=== PATIENT | male | born 1960 | race Caucasian/White ===

== ENCOUNTER 2022-05-13 06:21 | Emergency (ER) | payer MEDICARE, OTHER ==
[~2022-05-13] VITALS: Ht 182.8 cm; Wt 79.5 kg
--- NOTE | 2022-05-13 07:11 | ED Abdominal Pain ---
General Chief Complaint: Abdominal/GI Problems Stated Complaint: UNABLE TO HAVE BOWEL MOVEMENT Source of Information: Patient Exam Limitations: No Limitations (MUSHTAQ CARTER DO) History of Present Illness Date Seen by Provider: May 13, 2022 Time Seen by Provider: 06:50 Initial Comments Patient is a 61-year-old male with history of chronic back pain requiring twice daily long-acting morphine who presents with constipation. Patient states he has diffuse episodic left lower abdominal pain associated with pressure and urge to defecate with inability to have a full bowel movement for the past 5 days. Patient has been treating himself with Dulcolax and a fleets enema without relief. Patient last took a fleets enema prior to ED arrival. States that in previous occasion he is required fecal disimpaction. He denies nausea vomiting, urinary frequency urgency or hematuria. He reports some worsening of chronic back pain. No other appearance of acute symptoms or complaints. Patient is accompanied at bedside by his spouse. Timing/Duration: 4-5 Days Severity/Quality: Other Location: Other Radiation: Other Activities at Onset: Other Modifying Factors: Improves With Other Associated Symptoms: Other (MUSHTAQ CARTER DO) Allergies and Home Medications Allergies Coded Allergies: NSAIDS (Non-Steroidal Anti-Inflamma (Verified Allergy, Unknown, 05/13/22) Patient Home Medication List Home Medication List Reviewed: Yes (MUSHTAQ CARTER DO) Home Medication List Reviewed: Yes (LINDA CRESPO MD) Review of Systems Review of Systems Constitutional: see HPI EENTM: See HPI Respiratory: See HPI Cardiovascular: See HPI Gastrointestinal: See HPI Genitourinary: See HPI Musculoskeletal: see HPI Skin: see HPI Psychiatric/Neurological: See HPI Endocrine: See HPI Hematologic/Lymphatic: See HPI (MUSHTAQ CARTER DO) Past Znmfove-Zcadbb-Mhfjdf Hx Patient Social History Tobacco Use?: No (MUSHTAQ CARTER DO) Physical Exam Vital Signs Vital Signs - First Documented 05/13/22 05/13/22 06:30 08:21 Temp 36.6 Pulse 86 Resp 18 B/P (MAP) 164/90 (114) Pulse Ox 99 O2 Delivery Room Air (LINDA CRESPO MD) Vital Signs Capillary Refill : (MUSHTAQ CARTER DO) Height/Weight/BMI Height: '" Weight: lbs. oz. kg; BMI Method: General Appearance: WD/WN, no apparent distress HEENT: normal ENT inspection Respiratory: lungs clear Cardiovascular: regular rate, rhythm Gastrointestinal: soft Extremities: normal range of motion, non-tender Back: normal inspection Neurologic/Psychiatric: alert, oriented x 3 (MUSHTAQ CARTER DO) Focused Exam Sepsis Stage: Ruled Out (MSUHTAQ CARTER DO) Progress/Results/Core Measures Results/Orders Vital Signs/I&O 05/13/22 05/13/22 06:30 08:21 Temp 36.6 36.6 Pulse 86 84 Resp 18 18 B/P (MAP) 164/90 (114) 152/84 Pulse Ox 99 O2 Delivery Room Air Room Air (LINDA CRESPO MD) Progress Progress Note #1: Progress Note I assumed care of patient from Dr. Carter at shift change. Patient had acute abdomen xray series done that shows increased stool throughout colon but no definite sign of a fecal impaction. Will offer to perform digital rectal exam of patient to see if there is any stool that can be reached for digital disimpaction. Progress Note #2: Progress Note The acute abdomen x-ray series did show some increased stool present throughout the colon but there was no rectal impaction. Reviewed results with the patient and family. He has had some results here in the emergency department after he had used Dulcolax and fleets enema from home. Counseled that I could perform a digital rectal exam to see if there was any stool I could reach however it did n ot look like it on the x-ray. Patient deferred on this and I did mention that she could also use MiraLAX and Dulcolax to try to get his bowels to move from above as well as continued the fleets enemas if needed. Consider speaking with his pain management provider about medications for opioid-induced constipation such as Linzess or other medications. Patient was agreeable to this plan and will continue to try things at home. He was just concerned that he may have a complete bowel blockage or need disimpaction as he had years ago after surgery. (LINDA CRESPO MD) Diagnostic Imaging Diagonstic Imaging: Xray Plain Films/CT/US/NM/MRI: abdomen Comments NAME: INEZ HENRY [facility] REC#: [id number] PT STATUS: REG ER : 1960 PHYSICIAN: MUSHTAQ CARTER DO ADMIT DATE: 05/13/22/ER FS Draft Date of Exam:05/13/22 ACUTE ABD SERIES CLINICAL INDICATION: Patient with no BM for 5-6 days. Patient has history of pain medication use. EXAMS: X-ray of the chest PA view and x-ray of the abdomen supine and upright views. COMPARISONS: None. FINDINGS: LUNGS/ PLEURA: Lungs are clear. There is no pneumothorax. There is no pleural effusion. MEDIASTINUM: Unremarkable. PULMONARY VASCULATURE: Unremarkable. HEART: Unremarkable. BONES/ EXTRATHORACIC SOFT TISSUE: There are degenerative spurs involving the thoracic spine. ABDOMEN AND PELVIS: There are nondilated multiple air loops with air-fluid levels involving the small bowel and colon. This is most seen in the mid abdomen, right colon region and pelvis. There is formed stool in the left colon region. There are sutures in the pelvis noted. Phleboliths are noted in the pelvis. There is no evidence of abdominal free air. Surgical clips are seen overlying the right upper quadrant which could be related to cholecystectomy changes. There are no focal calcifications overlying the expected regions/ pathways of both kidneys, ureters, and bladder regions. IMPRESSION: 1: There is no radiographic evidence of acute cardiopulmonary process. 2: Nonspecific bowel gas pattern with nondilated multiple loops of air-fluid levels involving small bowel and colon. These findings may represent infectious or inflammatory enteritis. Ileus is less likely. Dictated on workstation # [id number] Dict: 05/13/22 0725 Trans: 05/13/22 0743 [facility] [id number] Interpreted by: NOAH CISNEROS MD Electronically signed by: Reviewed: Reviewed by Nh (LINDA CRESPO MD) Departure Communication (Admissions) Acute abdominal series: Work-up in progress. Care to be transitioned to oncoming ERP at 07:00 (MUSHTAQ CARTER DO) Impression Primary Impression: Constipation due to opioid therapy Additional Impression: Intermittent left lower quadrant abdominal pain Disposition: 01 HOME, SELF-CARE Condition: Stable Departure-Patient Inst. Decision time for Depature: 08:23 (LINDA CRESPO MD) Referrals: NO,LOCAL PHYSICIAN (PCP/Family) Primary Care Physician Patient Instructions: Constipation, Adult ED, Dealing with Constipation from the Drugs You Take Add. Discharge Instructions: Continue to drink plenty of fluids and stay well-hydrated. Consider adding an MiraLAX to your constipation regimen. You can mix 1 capful or 17 g and 8 ounces of liquid and drink without at least once a day. This will help to soften your stools as well as keep your bowel movements more regular. Consider checking with your pain management or primary doctor about medications for opioid-induced constipation, such as Linzess. There are other medicines that they could prescribe as well. They would be the best ones to check with and see if you might be a candidate to take 1 of these medications. All discharge instructions reviewed with patient and/or family. Voiced understanding. MUSHTAQ CARTER DO May 13, 2022 07:11 LINDA CRESPO MD May 13, 2022 07:50
--- NOTE | 2022-05-13 07:44 | Diagnostic Imaging Report ---
CLINICAL INDICATION: Patient with no BM for 5-6 days. Patient has history of pain medication use. EXAMS: X-ray of the chest PA view and x-ray of the abdomen supine and upright views. COMPARISONS: None. FINDINGS: LUNGS/ PLEURA: Lungs are clear. There is no pneumothorax. There is no pleural effusion. MEDIASTINUM: Unremarkable. PULMONARY VASCULATURE: Unremarkable. HEART: Unremarkable. BONES/ EXTRATHORACIC SOFT TISSUE: There are degenerative spurs involving the thoracic spine. ABDOMEN AND PELVIS: There are nondilated multiple air loops with air-fluid levels involving the small bowel and colon. This is most seen in the mid abdomen, right colon region and pelvis. There is formed stool in the left colon region. There are sutures in the pelvis noted. Phleboliths are noted in the pelvis. There is no evidence of abdominal free air. Surgical clips are seen overlying the right upper quadrant which could be related to cholecystectomy changes. There are no focal calcifications overlying the expected regions/ pathways of both kidneys, ureters, and bladder regions. IMPRESSION: 1: There is no radiographic evidence of acute cardiopulmonary process. 2: Nonspecific bowel gas pattern with nondilated multiple loops of air-fluid levels involving small bowel and colon. These findings may represent infectious or inflammatory enteritis. Ileus is less likely. Dictated by: Dictated on workstation # [id number]
[2022-05-13 08:21] VITALS: BP 152/84
== END 2022-05-13 08:27 | disposition home or self-care (01) ==
LOC: ER FS 06:32
DX: K59.03 Drug induced constipation (principal); T40.2X5A Adverse effect of other opioids, initial encounter
CPT/HCPCS: 74022